=== PATIENT | male | born 2000 | race African-American/Black ===

== ENCOUNTER 2021-04-25 01:15 | Observation (INO) | payer SELFPAY ==
[2021-04-25 01:58] LABS: #Monocytes 0.9 thou/uL (0.11-0.59); #Neutrophils 10.7 thou/uL (1.40-6.50); %Basophils 0.1 % (0.0-1.0); %Eosinophils 0.1 % (0.0-10.0); %Lymphocytes 14.9 % (21.0-51.0); %Monocytes 6.6 % (0.0-10.0); %Neutrophils 78.3 % (42.0-75.0); Hemoglobin 12.7 g/dL (14.0-18.0); Mean Corpuscular HGB CONC 33.9 g/dL (32.0-36.0); Mean Corpuscular Volume 91.5 fL (78.0-98.0); Mean Platelet Volume 7.6 fL (7.4-10.4); Platelet Count 175 thou/uL (130-400); RBC Distribution Width 10.8 % (11.5-14.5); Red Blood Cell (RBC) Count 4.11 mill/uL (4.70-6.10); White Blood Cell (WBC) Count 13.7 thou/uL (4.8-10.8)
[2021-04-25] MEDS ORDERED: Morphine 4 MG/ML VIAL ONE (02:10)
[2021-04-25] MEDS ORDERED: CEFAZOLIN 1 GM VIAL ONE ×2 (02:10→12:11)
[2021-04-25] MEDS ORDERED: Boostrix 0.5 ML (Tdap) VIAL ONE (02:10)
[2021-04-25 02:30] LABS: ALT (SGPT) 13 U/L (8-55); AST (SGOT) 20 U/L (5-34); Albumin 3.7 g/dL (3.5-5.0); Alkaline Phosphatase 43 U/L (40-110); Anion Gap 9 mmol/L (10-20); BUN (Urea Nitrogen) 14 mg/dL (8.9-20.6); Bilirubin, Total 0.7 mg/dL (0.2-1.2); Calc. Creatinine Clearance 0 mL/min (70-130); Calcium 8.8 mg/dL (7.8-10.44); Carbon Dioxide 24 mmol/L (22-29); Chloride 109 mmol/L (98-107); Globulin 2.9 g/dL (2.4-3.5); Glucose 113 mg/dL (70-105); Potassium 3.8 mmol/L (3.5-5.1); Protein, Total 6.6 g/dL (6.0-8.3); Sodium 138 mmol/L (136-145)
[2021-04-25] MEDS ORDERED: hydrALAZINE 20 MG/ML VIAL SLOW IVP PRN (03:17)
[2021-04-25] MEDS ORDERED: Ondansetron ODT 4 MG TAB PO PRN ×2 (03:17→16:22)
[2021-04-25] MEDS ORDERED: Ketorolac Tromethamine 30 MG/ML VIAL IVP SCH ×2 (03:17→18:00)
[2021-04-25] MEDS ORDERED: Morphine 2 MG/ML VIAL SLOW IVP PRN (03:17)
[2021-04-25] MEDS ORDERED: traMADol HCl 50 MG TAB PO PRN ×2 (03:17→16:22)
[2021-04-25] MEDS ORDERED: Ondansetron PF 4 MG/2 ML Vial IVP PRN ×2 (03:17→16:22)
[2021-04-25] MEDS ORDERED: Cyclobenzaprine 10 MG TAB PO PRN (03:17)
[2021-04-25] MEDS ORDERED: Dextrose 5% in Water 1,000 ML IV PRN (03:17)
[2021-04-25] MEDS ORDERED: Dextrose 50% Abboject 50 ML SYRINGE SLOW IVP PRN (03:17)
[2021-04-25 04:00] VITALS: BMI 23.0
[2021-04-25] MEDS: Sodium Chloride 0.9% 1,000 ML IV SCH ×2 (04:06→16:12)
[2021-04-25] MEDS: Ibuprofen 800 MG TAB PO SCH ×2 (04:10→12:47)
[2021-04-25] MEDS: Acetaminophen 500 MG TAB PO SCH ×3 (05:55→19:01)
[2021-04-25] MEDS: Famotidine 20 MG TAB PO SCH ×2 (08:07→20:47)
[2021-04-25] MEDS ORDERED: CEFAZOLIN 1 GM in Sodium Chloride 0.9% 100 ML IVPB SCH (12:00)
[2021-04-25] MEDS ORDERED: Sodium Chloride 0.9% 100 ML ONE (12:11)
[2021-04-25] MEDS ORDERED: Neomycin-Polymyxin 1 ML AMP ONE ×2 (13:00)
[2021-04-25] MEDS ORDERED: Fentanyl 100 MCG/2 ML VIAL ONE (13:44)
[2021-04-25] MEDS ORDERED: HYDROmorphone 0.5 MG/0.5 ML SYRINGE ONE (13:44)
[2021-04-25] MEDS ORDERED: PROPOFOL 200 MG/20 ML VIAL ONE (13:53)
[2021-04-25] MEDS ORDERED: Lidocaine 2% PF 5 ML VIAL ONE (13:53)
[2021-04-25] MEDS ORDERED: Dexamethasone 20 MG/5 ML VIAL ONE (13:53)
[2021-04-25] MEDS ORDERED: Ketorolac Tromethamine 30 MG/ML VIAL ONE ×2 (13:53)
[2021-04-25] MEDS ORDERED: diphenhydrAMINE 50 MG/ML VIAL ONE (13:53)
[2021-04-25] MEDS ORDERED: Rocuronium Bromide 10 MG/ML (10ML VIAL) ONE (13:53)
[2021-04-25] MEDS ORDERED: Ondansetron PF 4 MG/2 ML Vial ONE (13:53)
[2021-04-25] MEDS ORDERED: EPINEPHrine 1 MG/ML AMP ONE (15:37)
[2021-04-25] MEDS ORDERED: Bupivacaine PF 0.5% 30 ML VIAL ONE (15:37)
[2021-04-25] MEDS ORDERED: Milk Of Magnesia 30 ML UDCUP PO PRN (16:22)
[2021-04-25] MEDS ORDERED: Fentanyl 100 MCG/2 ML VIAL SLOW IVP PRN (16:22)
[2021-04-25] MEDS ORDERED: Cepastat Lozenges 1 LOZ PO PRN (16:22)
[2021-04-25] MEDS ORDERED: CEFAZOLIN 2 GM in Premix Bag 1 BAG IVPB SCH (16:30)
[2021-04-25] MEDS: traMADol HCl 50 MG TAB PO PRN (19:02)
[2021-04-25] MEDS: Ketorolac Tromethamine 30 MG/ML VIAL IVP SCH (20:46)
[2021-04-25] MEDS: Aspirin 325 MG TAB PO SCH (20:47)
[2021-04-25] MEDS: Senokot S 8.6-50 MG TAB PO SCH (20:47)
[2021-04-25] MEDS: CEFAZOLIN 2 GM in Premix Bag 1 BAG IVPB SCH (20:54)
[2021-04-26] MEDS: Sodium Chloride 0.9% 1,000 ML IV SCH
[2021-04-26] MEDS: Acetaminophen 500 MG TAB PO SCH ×3 (00:18→12:54)
[2021-04-26] MEDS: Ketorolac Tromethamine 30 MG/ML VIAL IVP SCH ×2 (02:07→09:47)
[2021-04-26] MEDS: CEFAZOLIN 2 GM in Premix Bag 1 BAG IVPB SCH (05:40)
[2021-04-26 05:54] LABS: #Lymphocytes 1.7 thou/uL (1.20-3.40); #Neutrophils 9.6 thou/uL (1.40-6.50); %Basophils 0.1 % (0.0-1.0); %Lymphocytes 13.9 % (21.0-51.0); %Monocytes 8.2 % (0.0-10.0); %Neutrophils 77.8 % (42.0-75.0); Hemoglobin 10.1 g/dL (14.0-18.0); Mean Corpuscular HGB CONC 34.3 g/dL (32.0-36.0); Mean Corpuscular Hemoglobin 31.6 pg (27.0-31.0); Mean Corpuscular Volume 92.2 fL (78.0-98.0); Mean Platelet Volume 7.7 fL (7.4-10.4); Platelet Count 118 thou/uL (130-400); RBC Distribution Width 10.6 % (11.5-14.5); White Blood Cell (WBC) Count 12.4 thou/uL (4.8-10.8)
[2021-04-26] MEDS ORDERED: Multivitamin W/ Minerals 1 TAB PO SCH (09:00)
[2021-04-26] MEDS: Aspirin 325 MG TAB PO SCH (09:47)
[2021-04-26] MEDS: Famotidine 20 MG TAB PO SCH (09:47)
[2021-04-26] MEDS: Senokot S 8.6-50 MG TAB PO SCH (09:48)
[2021-04-26] MEDS ORDERED: Ibuprofen 600 MG TAB PO SCH (11:15)
[2021-04-26 12:08] LABS: #Eosinphils 0.1 thou/uL (0.0-0.7); #Monocytes 1.2 thou/uL (0.11-0.59); #Neutrophils 10.3 thou/uL (1.40-6.50); %Basophils 0.1 % (0.0-1.0); %Eosinophils 0.6 % (0.0-10.0); %Lymphocytes 20.3 % (21.0-51.0); %Monocytes 8.5 % (0.0-10.0); %Neutrophils 70.5 % (42.0-75.0); Hemoglobin 10.5 g/dL (14.0-18.0); Mean Corpuscular HGB CONC 35.3 g/dL (32.0-36.0); Mean Corpuscular Hemoglobin 32.5 pg (27.0-31.0); Mean Corpuscular Volume 92.2 fL (78.0-98.0); Mean Platelet Volume 7.9 fL (7.4-10.4); Platelet Count 120 thou/uL (130-400); RBC Distribution Width 10.7 % (11.5-14.5); Red Blood Cell (RBC) Count 3.23 mill/uL (4.70-6.10); White Blood Cell (WBC) Count 14.6 thou/uL (4.8-10.8)
[2021-04-26] MEDS: traMADol HCl 50 MG TAB PO PRN (15:34)
[2021-04-26 16:17] VITALS: BP 111/65; TEMP 98.7
[2021-04-27] MEDS ORDERED: Ibuprofen 800 MG TAB PO SCH (22:00)
== END 2021-04-26 16:30 | disposition home or self-care (01) ==
LOC: ERS 01:15 → SURG A 01:48
PROVIDERS: ADMIT Specialist; ATTEND Specialist
PROC: 0SCD0ZZ Extirpation of Matter from Left Knee Joint, Open Approach (ICD-10-PCS; principal; 2021-04-25)
PROC: 0QSC04Z Reposition Left Lower Femur with Internal Fixation Device, Open Approach (ICD-10-PCS; 2021-04-25)
DX: S72.432 Displaced fracture of medial condyle of left femur (principal); S01.03XA Puncture wound without foreign body of scalp, initial encounter; S40.812A Abrasion of left upper arm, initial encounter; S51.032A Puncture wound without foreign body of left elbow, initial encounter; F12.10 Cannabis abuse, uncomplicated; Y24.9XXA Unspecified firearm discharge, undetermined intent, initial encounter
CPT/HCPCS: 36415; 76000; 80053; 85025; 90715; 93005; 96374; 96375; C1713; G0378; G0390; J0171; J0690; J1100; J1170; J1200; J1885; J2001; J2270; J2405; J2704; J3010; J3490; J7050; S0020